=== PATIENT | male | born 1955 | race Caucasian/White ===

== ENCOUNTER 2019-02-09 | Emergency (ER) | payer SELFPAY, OTHER | END 2019-02-09 00:37 ==

== ENCOUNTER 2019-02-10 13:39 | Emergency (ER) | payer OTHER | END 2019-02-10 14:28 | disposition home or self-care (01) ==

== ENCOUNTER 2019-02-10 19:31 | Emergency (ER) | payer OTHER | END 2019-02-10 19:40 | disposition home or self-care (01) ==